=== PATIENT | male | born 2000 ===

== ENCOUNTER 2023-01-27 10:32 | Emergency (ER) | payer BC, SELFPAY ==
[2023-01-27 10:39] VITALS: BP 134/89; PULSE 78; RESP 17; TEMP 36.8; O2SAT 96; BMI 37.1
--- NOTE | 2023-01-27 10:53 | W.ED.LOWEXIN ---
HPI - Extremity Injury (Lower) General: Chief Complaint: Extremity Injury, Lower Stated Complaint: RT ankle inj Time Seen by Provider: 01/27/23 10:35 Source: patient Mode of arrival: wheelchair Limitations: no limitations History of Present Illness: Patient is a 22-year-old male who presents to ED today for evaluation of a right ankle injury that he sustained yesterday evening after accidentally stepping into a ditch and rolling the ankle. Patient states he is not able to bear weight on the extremity secondary to pain. He has noticed swelling to the lateral aspect. He has no other injuries or complaints at this time. complaint: ankle injury Onset (ago): day(s) (yesterday) Injury: Right: ankle Type of Injury: inversion Place: home Severity: moderate Relieving factors: immobilization Exacerbating factors: weight bearing, movement and palpation Context: walking and other (twisting) Associated symptoms: Reports inability to bear weight Other symptoms: none Treatments prior to arrival: other (KAROL wrap) Review of Systems Musc: Reports: joint pain (R ankle) and joint swelling (R ankle); Denies: neck pain, back pain, extremity pain, extremity swelling, joint redness or joint warmth Neuro: Reports: difficulty walking (secondary to pain in R ankle); Denies: numbness in extremities, weakness in extremities or sensory changes Physical Exam Const: COMMON NORMALS: no acute distress, patient oriented x3, no limitations, alert and well nourished NUTRITIONAL APPEARANCE: overweight Extremity: COMMON NORMALS: capillary refill normal, no calf tenderness and no pedal edema GENERAL: Yes normal exam except as noted RIGHT LOWER EXTREMITY: Yes foot & digits (TTP anteriolateral ankle) Right ankle: Yes inspection (swelling noted laterally), Yes ROM (limited flexion) and Yes neurovascular exam (normal) Neuro: COMMON NORMALS: patient oriented x3, moves all extremities, no focal motor deficits and no sensory deficits noted SENSORIUM/ORIENTATION: Yes alert Skin: TRAUMA: no lacerations or abrasions Course Vital Signs: Vital signs: Vital Signs Temperature 98.2 F 01/27/23 10:39 Pulse Rate 78 01/27/23 10:39 Respiratory Rate 17 01/27/23 10:39 Blood Pressure 134/89 01/27/23 10:39 Pulse Oximetry 96 01/27/23 10:39 Oxygen Delivery Me thod Room Air 01/27/23 10:39 MDM - Extremity Injury (Lower) Medical Decision Making XR negative. He has an KAROL wrap. Will give crutches with instructions for weightbearing as tolerated. RICE therapy discussed. Follow-up with primary care in 1 to 2 weeks if symptoms do not seem to be improving. XR interpretation done by ED provider, pending radiology final review Discharge Plan Discharge Patient Disposition: Home Clinical Impression: Ankle sprain and strain Condition: Stable Discharge Orders: Discharge ED (Routine); Ordered 01/27/23 Ordered By: Julia Hodges Patient Instructions: Ankle Sprain (DC), RICE Therapy Coding Level of Care Code ED Plumber Pipe Fitting for Lenny Medrano
--- NOTE | 2023-01-27 10:54 | XR_ITS ---
WS: [id number] Right ankle, 3 views, 01/27/2023 Clinical Data: injury Comparison: None. Findings: No fractures or dislocations are seen. The ankle mortise is normal. The talus and calcaneus are unrem arkable. There is soft tissue swelling over the lateral malleolus. Impression: 1. Negative for fracture or dislocation. 2. Soft tissue swelling over lateral malleolus.
== END 2023-01-27 11:47 | disposition home or self-care (01) ==
PROVIDERS: Emergency Provider Physician Assistant
DX: S93.401A Sprain of unspecified ligament of right ankle, initial encounter (principal); S96.911A Strain of unspecified muscle and tendon at ankle and foot level, right foot, initial encounter; X50.1XXA Overexertion from prolonged static or awkward postures, initial encounter
CPT/HCPCS: 73610; 99283

== ENCOUNTER 2023-02-06 01:07 | Inpatient (IN) | payer BC, SELFPAY ==
[2023-02-06 01:09] VITALS: BP 151/107; PULSE 96; RESP 20; TEMP 37; O2SAT 97; BMI 38.2
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
[2023-02-06 02:33] LABS: Albumin Level 4.5 g/dL (3.5-5.2); Alkaline Phosphatase 185 U/L (40-130); Basophils % 0.5 %; Blood Urea Nitrogen 9 mg/dL (6-20); Calcium 9.8 mg/dL (8.5-10.5); Carbon Dioxide 23 mmol/L (22-29); Chloride 100 mmol/L (98-107); Eosinophils # 0.3 10^3/uL (0.0-0.8); Eosinophils % 2.9 %; Globulin 3.4 g/dL (1.3-4.6); Glomerular Filtration Rate 120.9 mL/min (90-130); Glucose 176 mg/dL (65-115); Hematocrit 42.9 % (37-53); Lymphocytes # 2.1 10^3/uL (0.8-4.8); Lymphocytes % 24.2 %; Mean Corpuscular HGB Conc 33.1 g/dL (30-55); Mean Corpuscular Hemoglobin 27.6 pg (27-33); Mean Corpuscular Volume 83.5 fl (82-101); Mean Platelet Volume 9.7 fL (7.4-10.4); Monocytes # 0.8 10^3/uL (0.2-0.9); Monocytes % 9.3 %; Neutrophils # 5.32 10^3/uL (1.8-7.7); Neutrophils % 61.8 %; Nucleated Red Blood Cells % 0 %; Osmolality Calculated 285 mOsm/kg (285-295); Platelet Count 349 10^3/cmm (157-399); Red Blood Count 5.14 10^6/uL (3.85-5.65); Red Cell Distribution Width 13.7 % (12.1-15.1); Sodium 136 mmol/L (136-145); Total Bilirubin 0.2 mg/dL (0.15-1.2); Total Protein 7.9 g/dL (6.6-8.7)
[2023-02-06 02:36] LABS: Acetaminophen < 5.0 ug/mL (10-30); Alcohol Level < 10 mg/dL (0-10); Anion Gap 16.8 (5-19); Potassium 3.8 mmol/L (3.5-5.1); Salicylate < 0.3 mg/dL (3-10)
[2023-02-06 02:38] LABS: Amphetamines Screen Urine Negative (Negative); Barbiturates Screen Urine Negative (Negative); Benzodiazepines Screen Urine Negative (Negative); Cocaine Screen Urine Negative (Negative); Opiate Screen Urine Negative (Negative); PCP Screen Urine Negative (Negative); THC Screen Urine Positive (Negative)
[2023-02-06 02:42] LABS: Add Urine Culture? No; Add Urine Microscopic? YES; Bilirubin Urine Neg (Negative); Blood Urine Neg (Negative); Glucose Urine UA Norm (Normal); Ketones Urine Negative (Negative); Leukocyte Esterase Urine Negative (Negative); Nitrate Urine Negative (Negative); Protein Urine Trace (Negative); Squamous Epithelial Cell Urine RARE /hpf (0-5); Urine Appearance Clear (CLEAR); Urine Color Yellow (Yellow); Urobilinogen Urine Neg (Negative); pH Urine 7 (5-7)
[2023-02-06 02:45] LABS: Alanine Aminotransferase 76 U/L (0-41); Aspartate Amino Transferase 5 U/L (0-40)
[2023-02-06 03:12] VITALS: BP 130/82; PULSE 91; RESP 18; TEMP 36.6; O2SAT 98
[2023-02-06 04:01] VITALS: BP 132/83; PULSE 89; RESP 16; O2SAT 97
--- NOTE | 2023-02-06 04:03 | PC.NURSE ---
Report called to MIKEL Harvey. All questions and concerns addressed at time of report.
--- NOTE | 2023-02-06 04:46 | PC.NURSE ---
Pt arrived to NPU w/ RN and casting house laborer at side. Pt is pleasant and cooperative. Admission assessment completed.
[2023-02-06 06:00] VITALS: BP 130/77; PULSE 88; RESP 16; O2SAT 97
[2023-02-06] MEDS: nicotine 21 mg Patch 1 PATCH TRANSDERMA (11:07)
[2023-02-06 14:00] VITALS: BP 132/85; PULSE 107; RESP 16; TEMP 36.6; O2SAT 97
[2023-02-06] MEDS: acetaminophen 325 mg Tablet 650 MG PO (15:30)
[2023-02-06] MEDS: lisinopril 5 mg Tablet PO (15:56)
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
[2023-02-06] MEDS: ARIPiprazole 10 mg Tablet 5 MG PO (17:21)
[2023-02-06 20:05] VITALS: RESP 16
[2023-02-07 06:00] VITALS: BP 115/73; PULSE 107; RESP 18; O2SAT 98
[2023-02-07] MEDS: nicotine 4 mg lozenge MUCOUS MEM (06:34)
[2023-02-07] MEDS: lisinopril 5 mg Tablet PO (09:02)
[2023-02-07] MEDS: sertraline 50 mg Tablet 150 MG PO (09:02)
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
[2023-02-07 12:52] VITALS: BP 115/73; PULSE 107; RESP 18; O2SAT 98
== END 2023-02-07 14:13 | disposition home or self-care (01) | DRG 881 ==
LOC: ER 02:50 → NP 05:03
PROVIDERS: Admitting Provider Psychiatry & Neurology Psychiatry; Emergency Provider Emergency Medicine; Visit Provider Psychiatry & Neurology Psychiatry
DX: F32.9 Major depressive disorder, single episode, unspecified (principal); R45.851 Suicidal ideations; F41.1 Generalized anxiety disorder; I10 Essential (primary) hypertension; F90.2 Attention-deficit hyperactivity disorder, combined type
CPT/HCPCS: 36415; 80053; 80306; 80307; 81001; 85025; 97165; 99285